=== PATIENT | female | born 1955 | race Two or more races ===

== ENCOUNTER → 2024-10-27 | Outpatient (CLI) | payer MEDICAID, SELFPAY ==
--- NOTE | 2024-10-27 09:00 | XR_ITS ---
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 AP supine abdomen demonstrates nonobstructive bowel gas pattern Patient swallowed thin barium with 16 spot fluoroscopic films of the esophagus stomach and duodenum Primary peristaltic esophageal waves Numerous secondary and tertiary esophageal contractions Moderate intermittent gastroesophageal reflux Moderate sliding esophageal hernia No gastric ulceration Mucosal thickening in the gastric antrum Duodenal bulb expands symmetrically, duodenal sweep and small bowel visualizes unremarkable IMPRESSION: Severe esophageal dysmotility Moderate intermittent gastroesophageal reflux Mucosal thickening of the gastric antrum most consistent with antral gastritis but clinical correlation advised
== END | disposition home or self-care (01) ==
PROVIDERS: PCP Nurse Practitioner Family; Referring Provider Nurse Practitioner Family; Visit Provider Nurse Practitioner Family
DX: K21.9 Gastro-esophageal reflux disease without esophagitis (principal); K31.89 Other diseases of stomach and duodenum
CPT/HCPCS: 74240; A4649